=== PATIENT | female | born 1955 | race Caucasian/White ===

== ENCOUNTER 2019-03-19 07:44 | Day surgery (SDC) | payer BC ==
[2019-03-11 14:59] LABS: BASOPHILS # (AUTO) 0.1 X10'3 (0-0.2); BASOPHILS % (AUTO) 1.2 % (0-1); EOSINOPHILS # (AUTO) 0.2 X10'3 (0-0.9); LYMPHOCYTES # (AUTO) 1.4 X10'3 (1.1-4.8); LYMPHOCYTES % (AUTO) 22.8 % (21-51); MEAN CORPUSCULAR HEMOGLOBIN 29.7 PG (27.0-31.0); MEAN CORPUSCULAR VOLUME 87.4 FL (78-98); MEAN PLATELET VOLUME 8.2 FL (7.4-10.4); MONOCYTES # (AUTO) 0.4 X10'3 (0-0.9); MONOCYTES % (AUTO) 6.7 % (2-12); NEUTROPHILS # (AUTO) 4.1 X10'3 (1.8-7.7); NEUTROPHILS % (AUTO) 66.3 % (42-75); PRE OP HEMATOCRIT 41.7 % (35.0-45.0); PRE OP HEMOGLOBIN 14.2 g/dL (12.0-16.0); PRE OP PLATELET COUNT 229 X10'3 (140-440); RED BLOOD COUNT 4.77 X10'6 (4.20-5.60); RED CELL DISTRIBUTION WIDTH 12.8 % (11.5-14.5)
[2019-03-11 15:13] LABS: ALBUMIN 3.8 G/DL (3.4-5.0); ALKALINE PHOSPHATASE 92 IU/L (46-116); BLOOD UREA NITROGEN 19 MG/DL (7-18); BUN/CREATININE RATIO 21.8 (6.6-38.0); CHLORIDE 104 MMOL/L (99-107); CREATININE 0.87 MG/DL (0.40-0.90); PRE OP ALT 37 U/L (30-65); PRE OP ANION GAP 8 (8-16); PRE OP AST 25 U/L (10-37); PRE OP BILIRUB, TOTAL 0.5 MG/DL (0.0-1.0); PRE OP GLUCOSE 150 MG/DL (70-104); PRE OP POTASSIUM 3.4 MMOL/L (3.4-5.1); PRE OP SODIUM 141 MMOL/L (135-145); TOTAL CARBON DIOXIDE 29.4 MMOL/L (24-32); TOTAL PROTEIN 7.7 G/DL (6.4-8.2); eGFR 66 ML/MIN
[~2019-03-19] VITALS: Ht 167.6 cm; Wt 122.0 kg
[2019-03-19] VITALS (7 sets, daily range): BP systolic 118–142; BP diastolic 57–84
[~2019-03-19 07:44] MED LIST: ASCO500C15 PO; ATEN100T PO; DOCUMENT DATE & TIME OF BETA-BLOCKER PO ONE; LACTC PO; LEVO200T8 PO; LEVO50TA8 PO; LIDOcaine 0.5% (5mg/ml) 50ml vial ONE; LOSA1TAB36 PO; cefazolin/dext.iso 2gm/50ml 50 ML IV ONE; famotidine 20mg tablet PO ONE; ringers solution, lacted 1,000 ML IV SCH
[2019-03-19] MEDS ORDERED: BUPIVAcaine/PF 2.5mg/ml (0.25%) 10ml vial ONE (10:08)
[2019-03-19] MEDS ORDERED: meperidine/PF 25mg/ml syringe IV PRN ×3 (10:10)
[2019-03-19] MEDS ORDERED: proCHLORperazine 10 MG/2 ml inj IV PRN (10:10)
[2019-03-19] MEDS ORDERED: morphine 4 MG/ML inj SYRINge IV PRN ×2 (10:10)
[2019-03-19] MEDS ORDERED: ondansetron/PF 4mg/2ml inj IV PRN (10:10)
[2019-03-19] MEDS ORDERED: ringers solution, lacted 1,000 ML IV SCH (10:10)
[2019-03-19] MEDS ORDERED: fentaNYL/PF 50MCG/1 ML 2ML syringe ONE (10:16)
[2019-03-19] MEDS ORDERED: midazolam 2 mg/2 ml injection ONE (10:16)
--- NOTE | 2019-03-19 10:42 | NUR ---
Received from OR via [facility], accompanied by Anesthesiologist DR VILLEGAS and report given by Anesthesiologist. PT DROWSY, DENIES PAIN, RIGHT HAND W/RE WRAP COVERING INCISION/DRSG CDI. FINGERS PWD, SEWER DIGGER 1-2 SECONDS, PT ABLE TO WIGGLE FINGERS. Addendum: 03/19/19 at 1156 by Katelyn Hurt RN Amended: Links added.
--- NOTE | 2019-03-19 11:42 | NUR ---
D/C INSTRUCTIONS GIVEN AND GONE OVER W/PT WHO VERBALIZES UNDERSTANDING, PT D/CD TO HOME VIA W/C TO PRIVATE VEHICLE W/O INCIDENT. Addendum: 03/19/19 at 1209 by Katelyn Hurt RN Amended: Links added.
== END 2019-03-19 11:42 | disposition home or self-care (01) ==
LOC: PAS 07:44
PROVIDERS: ATTEND Orthopaedic Surgery Hand Surgery
DX: M65.311 Trigger thumb, right thumb (principal); I10 Essential (primary) hypertension; E03.9 Hypothyroidism, unspecified; E66.9 Obesity, unspecified; Z68.41 Body mass index [BMI] 40.0-44.9, adult; Z87.891 Personal history of nicotine dependence; Z88.5 Allergy status to narcotic agent; Z88.8 Allergy status to other drugs, medicaments and biological substances; Z79.899 Other long term (current) drug therapy; Z98.890 Other specified postprocedural states; Z72.89 Other problems related to lifestyle
CPT/HCPCS: 26055; 36415; 80053; 82948; 85025; 93005; J2001; J2250; J3010; J3490; A4215; A4615; A6449; J7120

== ENCOUNTER 2024-05-06 09:37 | Day surgery (SDC) | payer MEDICARE, BC ==
[2024-05-03 11:38] LABS: BASOPHILS # (AUTO) 0.1 X10'3 (0-0.2); BASOPHILS % (AUTO) 1.3 % (0-1); EOSINOPHILS # (AUTO) 0.2 X10'3 (0-0.9); EOSINOPHILS % (AUTO) 2.8 % (0-6); LYMPHOCYTES # (AUTO) 1.7 X10'3 (1.1-4.8); LYMPHOCYTES % (AUTO) 28.4 % (21-51); MEAN CORPUSCULAR HEMOGLOBIN 30.5 PG (27.0-31.0); MEAN CORPUSCULAR HGB CONC 33.7 g/dL (33.0-36.5); MEAN CORPUSCULAR VOLUME 90.5 FL (78-98); MEAN PLATELET VOLUME 8.1 FL (7.4-10.4); MONOCYTES # (AUTO) 0.5 X10'3 (0-0.9); MONOCYTES % (AUTO) 8.7 % (2-12); NEUTROPHILS # (AUTO) 3.5 X10'3 (1.8-7.7); NEUTROPHILS % (AUTO) 58.8 % (42-75); PRE OP HEMATOCRIT 41.1 % (35.0-45.0); PRE OP HEMOGLOBIN 13.8 g/dL (12.0-16.0); PRE OP PLATELET COUNT 234 X10'3 (140-440); RED BLOOD COUNT 4.54 X10'6 (4.20-5.60); RED CELL DISTRIBUTION WIDTH 12.7 % (11.5-14.5)
[2024-05-03 11:58] LABS: ALBUMIN 3.7 G/DL (3.4-5.0); ALKALINE PHOSPHATASE 103 IU/L (46-116); BLOOD UREA NITROGEN 24 MG/DL (7-18); BUN/CREATININE RATIO 37.5 (10.0-20.0); CALCIUM 8.3 MG/DL (8.5-10.1); CHLORIDE 106 MMOL/L (99-107); CREATININE 0.64 MG/DL (0.40-0.90); PRE OP ALT 21 U/L (30-65); PRE OP ANION GAP 6 (8-16); PRE OP AST 18 U/L (10-37); PRE OP BILIRUB, TOTAL 0.4 MG/DL (0.0-1.0); PRE OP GLUCOSE 111 MG/DL (70-104); PRE OP POTASSIUM 3.6 MMOL/L (3.4-5.1); PRE OP SODIUM 141 MMOL/L (135-145); TOTAL CARBON DIOXIDE 29.4 MMOL/L (24-32); TOTAL PROTEIN 7.3 G/DL (6.4-8.2); eGFR > 90 ML/MIN
[2024-05-06] VITALS (16 sets, daily range): BP systolic 142–179; BP diastolic 71–103; PULSE 44–71; RESP 14–16; O2SAT 94–100
[~2024-05-06] VITALS: Ht 167.6 cm; Wt 118.3 kg
[2024-05-06] MEDS: ceFAZolin 2gm in dextrose, iso 50 ML IV ONE (05:30)
[~2024-05-06 09:37] MED LIST changes: -ASCO500C15 PO; +CHOL1CAP16; -LACTC PO; -LEVO50TA8 PO; -LIDOcaine 0.5% (5mg/ml) 50ml vial ONE; +MILK175T PO; -cefazolin/dext.iso 2gm/50ml 50 ML IV ONE; -famotidine 20mg tablet PO ONE; -ringers solution, lacted 1,000 ML IV SCH
[2024-05-06] MEDS: ringers solution, lacted 1,000 ML IV SCH (10:30)
[2024-05-06] MEDS: famotidine 20mg tablet PO ONE (10:30)
[2024-05-06] MEDS ORDERED: morphine 4 MG/ML inj SYRINge IV PRN (12:15)
[2024-05-06] MEDS ORDERED: ringers solution, lacted 1,000 ML IV SCH (12:15)
[2024-05-06] MEDS ORDERED: proCHLORperazine 10 MG/2 ml inj IV PRN (12:15)
[2024-05-06] MEDS ORDERED: labetalol 20mg/4ml (5mg/ml) syringe IV PRN (12:15)
[2024-05-06] MEDS ORDERED: morphine 2 MG/ML inj. syringe IV PRN (12:15)
[2024-05-06] MEDS ORDERED: ondansetron/PF 4mg/2ml inj IV PRN (12:15)
[2024-05-06] MEDS ORDERED: enalaprilat dihydrate 2.5mg/2ml vial IV PRN (12:15)
[2024-05-06] MEDS ORDERED: methylene blue (5mg/ml) 50mg/10ml ampul IV ONE (12:18)
[2024-05-06] MEDS ORDERED: BUPIVACAINE liposomal/PF 13.3 MG/ML vial IM ONE (12:18)
[2024-05-06] MEDS ORDERED: LIDOcaine 1% (10mg/ml)w/preservative inj. 20ml MDV ONE ×2 (12:18→13:28)
[2024-05-06] MEDS ORDERED: BUPIVAcaine 2.5mg/ml inj 50ml vial (contains preservative) ONE (12:18)
[2024-05-06] MEDS ORDERED: fentaNYL/PF 50MCG/1 ML 2ML syringe ONE (13:02)
[2024-05-06] MEDS ORDERED: midazolam 1 mg/ML 2ml injection ONE (13:02)
[2024-05-06] MEDS ORDERED: sevoflurane 250ml liquid IH ONE (13:03)
== END 2024-05-06 17:21 | disposition home or self-care (01) ==
LOC: PAS 09:37
PROVIDERS: ATTEND Surgery
DX: D05.11 Intraductal carcinoma in situ of right breast (principal); I10 Essential (primary) hypertension; E03.9 Hypothyroidism, unspecified; E66.9 Obesity, unspecified; K21.9 Gastro-esophageal reflux disease without esophagitis; Z87.891 Personal history of nicotine dependence; Z79.890 Hormone replacement therapy; Z79.899 Other long term (current) drug therapy; Z98.890 Other specified postprocedural states; Z68.41 Body mass index [BMI] 40.0-44.9, adult; Z88.5 Allergy status to narcotic agent; Z88.8 Allergy status to other drugs, medicaments and biological substances
CPT/HCPCS: 19301; 36415; 38525; 38900; 76098; 80053; 82948; 85025; 93005; A4215; A4618; A6258; A6402; A6449; A7000; J0690; J2250; J2405; J2704; J3010; J3490; J7030; J7120; Q9968; Z7506; Z7508; Z7512; Z7610; C9290